=== PATIENT | male | born 1955 | race Caucasian/White ===

== ENCOUNTER 2019-12-02 15:26 | Day surgery (SDC) | payer BC ==
[~2019-12-02 15:26] MED LIST: Sodium Chloride 0.9% 10 ML SDV IV PRN; Sodium Chloride 0.9% 10 ML Syringe FLUSH PRN; Sodium Chloride 0.9% 2.5 ML Syringe FLUSH PRN; ceFAZolin 2 GM in Premix Bag 1 BAG IV ONE
[2019-12-02] MEDS ORDERED: Lactated Ringers 1,000 ML IV SCH (15:30)
--- NOTE | 2019-12-02 17:08 | PCM.PREANE ---
Preanesthetic Assessment - Anesthesia/Transfusion/Family Hx Anesthesia History: Prior Anesthesia Without Reaction Type of Anesthesia Reaction: Other (see below) Family History of Anesthesia Reaction: No Transfusion History: Unknown Intubation History: Unknown - Review of Systems General: No Symptoms Pulmonary: No Symptoms Cardiovascular: No Symptoms Gastrointestinal: No Symptoms Neurological: No Symptoms Other: Reports: None - Physical Assessment Vital Signs: Last Vital Signs Temp 36.7 C 12/02/19 16:00 Pulse 79 12/02/19 16:00 Resp 18 12/02/19 16:00 BP 150/63 H 12/02/19 16:00 Pulse Ox 97 12/02/19 16:00 ASA Class: 2 Mental Status: Alert & Oriented x3 Airway Class: Mallampati = 3 Dentition: Reports: Normal Dentition Thyro-Mental Finger Breadths: 3 Mouth Opening Finger Breadths: 2 ROM/Head Extension: Limited/Partial Lungs: Clear to Auscultation, Normal Respiratory Effort Cardiovascular: Regular Rate, Regular Rhythm - Lab Values: Laboratory Last Values SARS-CoV-2 RNA (MANUEL) NEGATIVE (NEGATIVE) 12/02/19 15:42 - Allergies Allergies/Adverse Reactions: Allergies Allergy/AdvReac Type Severity Reaction Status Date / Time No Known Allergies Allergy Verified 12/02/19 16:02 - Blood Blood Available: No - Anesthesia Plan Pre-Op Medication Ordered: None - Acknowledgements Anesthesia Type Planned: General Anesthesia Pt an Appropriate Candidate for the Planned Anesthesia: Yes Alternatives and Risks of Anesthesia Discussed w Pt/Guardian: Yes Pt/Guardian Understands and Agrees with Anesthesia Plan: Yes PreAnesthesia Questionnaire Genitourinary History: Reports: Renal Calculus Endocrine/Metabolic History: Reports: Obesity/BMI 30+ - Infectious Disease History Infectious Disease History: Reports: Chicken Pox - Past Surgical History GI Surgical History: Reports: Colonoscopy (2 weeks ago) Musculoskeletal Surgical History: Reports: Shoulder Surgery, Other (See Below) (left knee surgery '73) Other Musculoskeletal Surgeries/Procedures:: rigrht shoulder -mar 2017 - SUBSTANCE USE Smoking Status *Q: Light Tobacco Smoker Tobacco Use Within Last Twelve Months: Cigars Days Per Week of Alcohol Use: 1 Number of Drinks Per Day: 3 Total Drinks Per Week: 3 Recreational Drug Use History: No - CURRENT (IN HOUSE) MEDS Current Meds: Current Medications Lactated Ringer's (Ringers, Lactated) 1,000 mls @ 100 mls/hr IV ASDIRECTED KEITH Sodium Chloride (Saline Flush) 10 ml FLUSH ASDIRECTED PRN PRN Reason: Keep Vein Open Sodium Chloride (Saline Flush) 2.5 ml FLUSH ASDIRECTED PRN PRN Reason: Keep Vein Open Sodium Chloride (Normal Saline) 10 ml IV ASDIRECTED PRN PRN Reason: IV Use Discontinued Medications Cefazolin Sodium/Dextrose 2 gm (/ Premix) 50 mls @ 100 mls/hr IV ONCALL ONE Stop: 12/02/19 15:54
[2019-12-02] MEDS ORDERED: Midazolam 1 MG/ML 2 ML SDV ONE (17:12)
[2019-12-02] MEDS ORDERED: Ondansetron 4 MG/2 ML SDV ONE (17:12)
[2019-12-02] MEDS ORDERED: fentaNYL 100 MCG/2 ML SDV ONE ×2 (17:12→18:34)
[2019-12-02] MEDS ORDERED: Propofol 200 MG/20 ML SDV ONE (17:12)
[2019-12-02] MEDS ORDERED: Iopamidol 408 MG/ML 20 ML SDV ONE (17:37)
[2019-12-02] MEDS ORDERED: ceFAZolin/Dextrose,Iso-Osmotic 2 GM/50 ML Duplex Bag IV ONE (17:41)
[2019-12-02] MEDS ORDERED: Meperidine PF 25 MG/ML Syringe ONE (18:52)
--- NOTE | 2019-12-02 19:14 | PCM.POSTAN ---
POST ANESTHESIA ASSESSMENT - MENTAL STATUS Mental Status: Alert (stable denies pain), Oriented - VITAL SIGNS Vital Signs: Last Vital Signs Temp 97.5 F 12/02/19 18:48 Pulse 88 12/02/19 19:08 Resp 11 L 12/02/19 19:08 BP 117/62 12/02/19 19:08 Pulse Ox 95 12/02/19 19:08 - RESPIRATORY Respiratory Status: Respiratory Rate WNL, Airway Patent, O2 Saturation Stable - CARDIOVASCULAR CV Status: Pulse Rate WNL, Blood Pressure Stable - GASTROINTESTINAL GI Status: No Symptoms - PAIN Pain Score: 0 - POST OP HYDRATION Hydration Status: Adequate & Stable
--- NOTE | 2019-12-02 20:17 | OR ---
SURGEON: Jen Fraire M.D. DATE OF PROCEDURE: 12/02/2019 PREOPERATIVE DIAGNOSIS: 8 mm left ureteral stone. POSTOPERATIVE DIAGNOSIS: 8 mm left ureteral stone. OPERATION: Cystoscopy, left ureteroscopy, dilatation of the left lower ureter, laser lithotripsy, and stone removal. DESCRIPTION OF PROCEDURE: The patient was given general anesthesia. He was in dorsal lithotomy position, prepped and draped in sterile drapes. Cystourethroscopy was done. The prostate was enlarged, median lobe edge somewhat prominent. The left ureter was bulging as by a stone just behind the opening in the ureteral tunnel. A Glidewire was attempted. After the guidewire could not go through, the Glidewire eventually had to be supported by the ureteroscope right at the opening of the ureter to allow it to get up into the ureter and all the way up into the renal pelvis. The lower ureter was then dilated using the UroMax II balloon dilator to approximately 15-[place]. Rigid ureteroscope was advanced in the left ureter. The stone was visualized, made significantly smaller by using the laser or dusting the superficial part of the stone. The rest of the stone was removed using the grasper. With that done, the procedure was terminated. Inspection of the ureter showed no unusual damage or trauma to the ureter. The bladder was emptied. The stone was removed, and the patient was moved to recovery room in good condition. PLAN: He will be going home in a couple of hours. He is to come back if needed. VADIM / GRANT /[id number]
--- NOTE | 2019-12-03 22:32 | CR ---
Indication: Surgery. Technique: Three intraoperative views of the abdomen and pelvis. Comparison: None Findings: 18.9 seconds of intraoperative fluoroscopy was provided. Images demonstrate placement of a glide wire within the left distal ureter. Impression: Intraoperative images obtained. Dictated by Slime Suazo MD @ Dec 03 2019 10:29PM Signed by Dr. Slime Suazo @ Dec 03 2019 10:30PM
== END 2019-12-02 22:00 | disposition home or self-care (01) ==
LOC: MW.SDS 15:26 → MW.MS 15:34 → MW.SDS 22:00
PROVIDERS: ATTEND Urology
DX: N20.1 Calculus of ureter (principal); E66.9 Obesity, unspecified; F17.210 Nicotine dependence, cigarettes, uncomplicated; Z79.899 Other long term (current) drug therapy; Z01.812 Encounter for preprocedural laboratory examination; Z20.828 Contact with and (suspected) exposure to other viral communicable diseases
CPT/HCPCS: 52353; 76000; 87635; 88300; C1769; J0690; J2001; J2250; J2405; J2704; J3010; Q9966; 00918; U0002